=== PATIENT | female | born 1980 | race African-American/Black ===

== ENCOUNTER 2018-08-10 16:47 | Emergency (ER) | payer MEDICAID ==
[~2018-08-10] VITALS: Ht 160 cm; Wt 90.7 kg
--- NOTE | 2018-08-10 17:12 | PHYS DOC ---
Adult General Chief Complaint Chief Complaint: PAIN ON URINATION HPI HPI 37-year-old female presents with one-week history of increased urinary frequency , incomplete emptying, and dysuria. The patient states that she is having increasing discomfort with urination. She also is going more often. She describes the pain as a spasming, cramping sensation. Her menses just ended a few days ago. Denies vaginal discharge. She denies fever or chills. She now has low abdominal pain worse on the right. (BRENT CREWS DO) Review of Systems Review of Systems Constitutional: Denies fever or chills [] Eyes: Denies change in visual acuity, redness, or eye pain [] HENT: Denies nasal congestion or sore throat [] Respiratory: Denies cough or shortness of breath [] Cardiovascular: No additional information not addressed in HPI [] GI: Abdominal pain. Denies nausea, vomiting, bloody stools or diarrhea [] : Dysuria, increased urinary frequency[] Musculoskeletal: Denies back pain or joint pain [] Integument: Denies rash or skin lesions [] Neurologic: Denies headache, focal weakness or sensory changes [] Endocrine: Denies polyuria or polydipsia [] All other systems were reviewed and found to be within normal limits, except as documented in this note. (BRENT CREWS DO) Current Medications Current Medications Current Medications Medications (Trade) Dose Ordered Sig/Jason Start Time Stop Time Status Last Admin Dose Admin Sodium Chloride 1,000 ml @ 1,000 mls/hr 1X ONCE 08/10/18 17:15 08/10/18 18:14 UNV (BRENT CREWS DO) Physical Exam Physical Exam Constitutional: Well developed, obese, well nourished, no acute distress, non- toxic appearance. [] HENT: Normocephalic, atraumatic, bilateral external ears normal, oropharynx moist, no oral exudates, nose normal. [] Eyes: PERRLA, EOMI, conjunctiva normal, no discharge. [] Neck: Normal range of motion, no tenderness, supple, no stridor. [] Cardiovascular:Heart rate regular rhythm, no murmur [] Lungs & Thorax: Bilateral breath sounds clear to auscultation [] Abdomen: Suprapubic tenderness, soft, no rebound.[] Skin: Warm, dry, no erythema, no rash. [] Back: No tenderness, no CVA tenderness. [] Extremities: No tenderness, no cyanosis, no clubbing, ROM intact, no edema. [] Neurologic: Alert and oriented X 3, normal motor function, normal sensory function, no focal deficits noted. [] Psychologic: Affect normal, judgement normal, mood normal. [] (BRENT CREWS DO) EKG EKG [] (BRENT CREWS DO) Radiology/Procedures Radiology/Procedures [] (BRENT CREWS DO) Impressions: PROCEDURE: CT ABDOMEN PELVIS WO CONTRAST PQRS Compliance statement: One or more of the following individualized dose reduction techniques were utilized for this examination: 1. Automated exposure control. 2. Adjustment of the mA and/or kV according to patient size. 3. Use of iterative reconstruction technique. Indication:RIGHT FLANK PAIN, EVAL FOR STONE. HX X4, TUBAL 2011 TECHNIQUE: CT abdomen and pelvis with IV contrast with multiplanar reformats. COMPARISON: None FINDINGS: Limited evaluation of solid abdominal and pelvic organs due to lack of IV contrast. Heart is normal in size. No pericardial or pleural effusion. Clear lung bases. Noncontrast appearance of the liver, spleen, pancreas, adrenals within normal limits. Gallstone noted. No pericholecystic fluid or inflammatory changes. No nephrolithiasis or hydronephrosis. No free pelvic fluid or ascites. No enlarged retroperitoneal or pelvic adenopathy. No bowel obstruction. Normal appendix. Uterus is present. Circumferential wall thickening is seen of the urinary bladder without calcified stone. No pneumoperitoneum. No suspicious bony lesion. IMPRESSION: Limited evaluation of solid abdominal and pelvic organs due to lack of IV contrast. 1. No nephrolithiasis or hydronephrosis. 2. Cholelithiasis without imaging evidence of acute cholecystitis. 3. Circumferential wall thickening of the urinary bladder may be secondary to suboptimal distention or cystitis. Clinically correlate with urinalysis. 4. Normal appendix. Electronically signed by: Jens Borrero DO (08/10/2018 6:48 PM) [facility] PROCEDURE: ABDOMEN LTD Indication:ruq pain TECHNIQUE: Grayscale, color Doppler and spectral waveform is of the abdomen obtained. COMPARISON:None FINDINGS: Visualized pancreas within normal limits. Pancreatic tail not visualized due to overlying bowel gas. IVC within normal limits. No aortic aneurysm. Main portal vein is patent with hepatopedal flow. Liver is mildly enlarged measuring 18 cm in longest dimension with diffusely increased echogenicity. Right kidney measures 12.1 cm in length without hydronephrosis. Gallstones noted. No pericholecystic fluid or gallbladder wall thickening. CBD measures 4 mm in diameter and is within normal limits. IMPRESSION: 1. Cholelithiasis without imaging evidence of acute cholecystitis. 2. Mild hepatomegaly with hepatic steatosis. Electronically signed by: Jens Borrero DO (08/10/2018 8:40 PM) [facility] (GONZALO NAQVI Jr., DO) Course & Med Decision Making Course & Med Decision Making Pertinent Labs and Imaging studies reviewed. (See chart for details) The patient's urinalysis is borderline for UTI, but there is blood. I will perform a CT of the abdomen and pelvis to rule out kidney stone. I am signing the patient out to Dr. Naqvi at 1800 for final disposition. [] (BRENT CREWS DO) Course & Med Decision Making Patient CT had been completed without contrast and demonstrated findings of cholelithiasis without evidence for cholecystitis. I reviewed findings of workup with patient and patient noted to be in tears, indicating that her pain is quite severe still. She indicates that her pain is in her right flank region pointing to her right upper abdomen stating that it goes into her back. She does indicate that she has had nausea. She also indicates that she has urinary discomfort. An abdominal exam was performed by me and she did have positive Sandhu sign on examination. A right upper quadrant ultrasound was completed to rule out cholecystitis. While awaiting ultrasound, patient did continue to have pain and had received a total of 100 g of fentanyl followed by a half milligram of Dilaudid. Upon return of ultrasound report, I went in to review results with patient; however, patient had been found to have left the room. Nursing staff at this time indicates that patient had eloped from department without having notified any staff. (GONZALO NAQVI Jr., DO) Dragon Disclaimer Dragon Disclaimer This electronic medical record was generated, in whole or in part, using a voice recognition dictation system. (BRENT CREWS DO) Departure Departure: Impression: Primary Impression: Right sided abdominal pain Additional Impressions: Dysuria Cholelithiasis Disposition: 07 AGAINST MEDICAL ADVICE Condition: IMPROVED Problem Qualifiers Additional Impressions: Cholelithiasis Cholelithiasis location: gallbladder Cholecystitis presence: without cholecystitis Biliary obstruction: without biliary obstruction Qualified Codes: K80.20 - Calculus of gallbladder without cholecystitis without obstruction BRENT CREWS DO Aug 10, 2018 17:12 GONZALO NAQVI Jr. DO Aug 10, 2018 19:04
[2018-08-10] MEDS ORDERED: IV NORMAL SALINE 1,000ML 1,000 ML IV ONE (17:15)
[2018-08-10 17:24] LABS: BACTERIA,URINE 0 /HPF (0-FEW); BILIRUBIN,URINE NEG (NEG); CLARITY,URINE CLOUDY; COLOR,URINE YELLOW; GLUCOSE,URINE NEG (NEG); NITRITE,URINE NEG (NEG); RBC,URINE TNTC /HPF (0-2); UROBILINOGEN,URINE 1 mg/dL (0.2 mg/dL)
[2018-08-10 17:36] LABS: BASO # 0.1 x10^3/uL (0.0-0.2); BASO % 1 % (0-3); EOS # 0.1 x10^3/uL (0.0-0.7); EOS % 1 % (0-3); HEMATOCRIT 37.6 % (36.0-47.0); HEMOGLOBIN 12.2 g/dL (12.0-15.5); LYMPH # 2.1 x10^3/uL (1.0-4.8); LYMPH % 29 % (24-48); MEAN CORPUSCULAR HEMOGLOBIN 26 pg (25-35); MEAN CORPUSCULAR HGB CONC 33 g/dL (31-37); MEAN CORPUSCULAR VOLUME 81 fL (79-100); MONO # 0.6 x10^3/uL (0.0-1.1); MONO % 8 % (0-9); NEUT # 4.5 x10^3uL (1.8-7.7); NEUT % 61 % (31-73); PLATELET COUNT 238 x10^3/uL (140-400); RED BLOOD COUNT 4.63 x10^6/uL (3.50-5.40); RED CELL DISTRIBUTION WIDTH 16.9 % (11.5-14.5); WHITE BLOOD COUNT 7.4 x10^3/uL (4.0-11.0)
[2018-08-10 17:53] LABS: ALBUMIN 3.5 g/dL (3.4-5.0); ALBUMIN/GLOBULIN RATIO 0.8 (1.0-1.7); CALCIUM 8.8 mg/dL (8.5-10.1); GFR 62.7; TOTAL BILIRUBIN 0.3 mg/dL (0.2-1.0); TOTAL PROTEIN 7.8 g/dL (6.4-8.2)
[2018-08-10 18:09] LABS: POTASSIUM 4.3 mmol/L (3.5-5.1)
--- NOTE | 2018-08-10 18:51 | RAD ---
PQRS Compliance statement: One or more of the following individualized dose reduction techniques were utilized for this examination: 1. Automated exposure control. 2. Adjustment of the mA and/or kV according to patient size. 3. Use of iterative reconstruction technique. Indication:RIGHT FLANK PAIN, EVAL FOR STONE. HX X4, TUBAL 2012 TECHNIQUE: CT abdomen and pelvis with IV contrast with multiplanar reformats. COMPARISON: None FINDINGS: Limited evaluation of solid abdominal and pelvic organs due to lack of IV contrast. Heart is normal in size. No pericardial or pleural effusion. Clear lung bases. Noncontrast appearance of the liver, spleen, pancreas, adrenals within normal limits. Gallstone noted. No pericholecystic fluid or inflammatory changes. No nephrolithiasis or hydronephrosis. No free pelvic fluid or ascites. No enlarged retroperitoneal or pelvic adenopathy. No bowel obstruction. Normal appendix. Uterus is present. Circumferential wall thickening is seen of the urinary bladder without calcified stone. No pneumoperitoneum. No suspicious bony lesion. IMPRESSION: Limited evaluation of solid abdominal and pelvic organs due to lack of IV contrast. 1. No nephrolithiasis or hydronephrosis. 2. Cholelithiasis without imaging evidence of acute cholecystitis. 3. Circumferential wall thickening of the urinary bladder may be secondary to suboptimal distention or cystitis. Clinically correlate with urinalysis. 4. Normal appendix. Electronically signed by: Jens Borrero DO (08/10/2018 6:48 PM) [facility]
[2018-08-10] MEDS ORDERED: PHENAZOPYRIDINE 100 MG TABLET. PO ONE (19:15)
[2018-08-10] MEDS ORDERED: ONDANSETRON PF 4 MG/2 ML VIAL. IV ONE (19:15)
--- NOTE | 2018-08-10 20:43 | RAD ---
Indication:ruq pain TECHNIQUE: Grayscale, color Doppler and spectral waveform is of the abdomen obtained. COMPARISON:None FINDINGS: Visualized pancreas within normal limits. Pancreatic tail not visualized due to overlying bowel gas. IVC within normal limits. No aortic aneurysm. Main portal vein is patent with hepatopedal flow. Liver is mildly enlarged measuring 18 cm in longest dimension with diffusely increased echogenicity. Right kidney measures 12.1 cm in length without hydronephrosis. Gallstones noted. No pericholecystic fluid or gallbladder wall thickening. CBD measures 4 mm in diameter and is within normal limits. IMPRESSION: 1. Cholelithiasis without imaging evidence of acute cholecystitis. 2. Mild hepatomegaly with hepatic steatosis. Electronically signed by: Jens Borrero DO (08/10/2018 8:40 PM) [facility]
[2018-08-10 21:13] VITALS: BP 121/78
[2018-08-10] MEDS ORDERED: HYDROmorphone PF 2 MG/ML VIAL ONE (21:20)
[2018-08-10] MEDS ORDERED: HYDROmorphone PF 1 MG/ML DISP.SYRIN IV ONE (21:30)
== END 2018-08-10 21:35 | disposition left against medical advice (07) ==
LOC: ER 16:47
DX: K80.20 Calculus of gallbladder without cholecystitis without obstruction (principal); R16.0 Hepatomegaly, not elsewhere classified
CPT/HCPCS: 36415; 74176; 76705; 80053; 81001; 85025; 87086; 87186; 96374; 96375; 99284; J1170; J2405; J3010; J7030